=== PATIENT | male | born 1985 | race Caucasian/White ===

== ENCOUNTER 2018-09-09 22:06 | Emergency (ER) | payer SELFPAY ==
[~2018-09-09] VITALS: Ht 165.1 cm; Wt 117.9 kg
--- NOTE | 2018-09-09 22:11 | NUR ---
PT BIBRA FROM THE STREET FOR ETOH, -TRAUMA; PT TO BED 12, PT ON MONITOR, VSS, NAD NOTED. PENDING MD ZENG
--- NOTE | 2018-09-10 00:06 | NUR ---
Patient is resting comfortably in bed with eyes closed. Easily aroused. VSS
--- NOTE | 2018-09-10 01:11 | NUR ---
PT AMBULATORY TO RESTROOM WITH STEADY GAIT, [id number].
--- NOTE | 2018-09-10 01:45 | NUR ---
Patient discharged to home in stable condition. Written and verbal after care instructions given. Patient verbalizes understanding of instruction.Pt ambulatory with a steady gait
[2018-09-10 01:46] VITALS: BP 128/79
== END 2018-09-10 01:48 | disposition home or self-care (01) ==
LOC: ER 22:14
DX: F10.129 Alcohol abuse with intoxication, unspecified (principal); Y90.9 Presence of alcohol in blood, level not specified